=== PATIENT | female | born 1995 | race Caucasian/White ===

== ENCOUNTER 2017-03-15 16:25 | Emergency (ER) | payer OTHER ==
--- NOTE | 2017-03-15 18:37 | ER Document Report ---
ED Medical Screen (RME) - General Mode of Arrival: Ambulatory Information source: Patient TRAVEL OUTSIDE OF THE [place] IN LAST 30 DAYS: No - General Chief Complaint: Headache Stated Complaint: PELVIC PAIN Time Seen by Provider: 03/15/17 18:29 Notes: Patient presents with complaints of facial tingling and a headache. Patient goes on to state that she feels like she "cannot function normally", when asked to elaborate on this patient states that "she is there but she is not there". Patient then goes on to mention that she went today to have her IUD removed by the office that placed it and they "could not find it". Patient states she has been having pelvic pain for quite some time that she believes is associated with this "lost" IUD. Patient states that she has had to "think more about it" when asked to answer normal questions recently. Patient states her neck is stiff but she moves neck around during interaction without difficulty. (AIME HUMPHRIES) - Related Data Allergies/Adverse Reactions: No Known Allergies Allergy (Verified 03/15/17 16:29) Past Medical History Renal/ Medical History: Denies: Hx Peritoneal Dialysis Review of Systems - Review of Systems Neurological/Psychological: See HPI, Headaches, Tingling - facial Physical Exam - Neurological Neuro grossly intact: Yes Cognition: Normal Orientation: AAOx4 Speech: Normal Cranial nerves: Normal Cerebellar coordination: Normal, Finger-nose rhombey. No: Gait ataxia Motor strength normal: LUE, RUE, LLE, RLE Course - Re-evaluation Re-evalutation: 03/15/17 20:48 I personally performed the services described in the documentation, reviewed and edited the documentation which was dictated to my scribe in my presence, and it accurately records my words and actions. 03/16/17 15:57 03/16/17 15:57 Patient presents emerged from chief complaint of gradual onset of headache not the worst headache of her life not associated with blurred vision double vision or neurological deficits she has a GCS of 15 normal neurological exam and no altered mental status no nuchal rigidity or history of trauma. No fever CT head is negative she is going discharged to follow-up with primary care physician to 3 days and discussed reasons for ED return sooner (ANGELINA WILSON) - Vital Signs Vital signs: Temp Pulse Resp BP Pulse Ox 98.1 F 92 17 124/76 99 03/15/17 16:30 03/15/17 20:58 03/15/17 20:58 03/15/17 20:58 03/15/17 20:58 Doctor's Discharge - Discharge Clinical Impression: cephalgia, pelvic pain Condition: Stable Disposition: HOME, SELF-CARE Additional Instructions: Headache The physician does not feel that the headache you are experiencing has a serious underlying cause. Most headaches are due to emotional stress, with resultant muscle tension (tension headache). Occasionally, headaches are secondary to changes in the blood vessels of the scalp (vascular headache and migraine headache). Sometimes, a headache is the first symptom of another developing illness, such as a viral infection. You have no evidence of stroke, bleeding, meningitis, or other serious cause of your headache. The treatment of headaches varies with the severity and cause of the pain. Not all headaches need pain shots. In fact, there is evidence that using narcotics for headaches may make them worse in the long run. The physician will determine the therapy that's in your best interest. If you develop a fever, if the headache is different from any you've previously experienced, or if the headache progressively worsens, then call your physician at once or go to the emergency room. [place] and your specialist who is managing her chronic pain return for increasing worsening or new symptoms Scribe Documentation - Scribe Written by Fredi:: Fredi Zarate, 03/15/2017 1915 acting as scribe for :: Douglas
[2017-03-15 21:05] VITALS: BP 124/76
== END 2017-03-15 21:00 | disposition home or self-care (01) ==
LOC: ER 16:25
DX: R51 Headache (principal); R10.2 Pelvic and perineal pain
CPT/HCPCS: 70450; 99284